=== PATIENT | female | born 1985 | race Caucasian/White ===

== ENCOUNTER 2019-10-17 19:55 | Emergency (ER) | payer MEDICARE, OTHER ==
[~2019-10-17] VITALS: Ht 157.5 cm; Wt 154.2 kg
== END 2019-10-17 22:22 | disposition home or self-care (01) ==
LOC: ER 19:55
DX: S29.012A Strain of muscle and tendon of back wall of thorax, initial encounter (principal); Z88.0 Allergy status to penicillin; Z88.8 Allergy status to other drugs, medicaments and biological substances
CPT/HCPCS: 99283

== ENCOUNTER 2023-09-26 23:18 | Emergency (ER) | payer MEDICARE, OTHER ==
[~2023-09-26] VITALS: Ht 157.5 cm; Wt 154.2 kg
[2023-09-27 01:12] VITALS: O2SAT 96
== END 2023-09-27 01:12 | disposition home or self-care (01) ==
LOC: ER 23:26
DX: R05.9 Cough, unspecified (principal); J06.9 Acute upper respiratory infection, unspecified; I10 Essential (primary) hypertension; E78.5 Hyperlipidemia, unspecified; E03.9 Hypothyroidism, unspecified; M32.9 Systemic lupus erythematosus, unspecified; F31.9 Bipolar disorder, unspecified; Z11.52 Encounter for screening for COVID-19; Z86.718 Personal history of other venous thrombosis and embolism
CPT/HCPCS: 71045; 83518; 87070; 87400; 99283; U0002